=== PATIENT | female | born 1935 | race Caucasian/White ===

== ENCOUNTER 2016-11-25 14:31 | Emergency (ER) | payer MEDICARE, OTHER ==
[~2016-11-25] VITALS: Ht 152.4 cm; Wt 73.0 kg
[~2016-11-25 14:31] MED LIST: ASPI-482 PO; ATOR20TA58 PO; ENAL5TAB PO; ERGO500027 PO; FLUO40CA2 PO; FLUT16SP NS; FLUT1DIS3 IH; GABA800T2 PO; GLIM1TAB2 PO; Hydrocodone/Acetaminophen PO; METF-620 PO; METO25TA4 PO; MONT10TA9 PO; MULT1TAB52 PO; Methocarbamol PO; OXYB5TAB7 PO; PROM118S2 PO; VENTOLIN HFA18 GM IH; calcium PO
[2016-11-25] MEDS ORDERED: LIDOCAINE/EPI/TETRACAINE TOPICAL GEL 3 ML. TP ONE (15:00)
--- NOTE | 2016-11-25 15:46 | RAD ---
CT head without contrast: Reason for examination: Patient fell with laceration to posterior head. Axial images were obtained to the brain. No contrast was administered. Ventricular systems are prominent but symmetric consistent with patient's advanced age with symmetric cerebral atrophy. No midline shift is seen. There is no evidence of intracranial hemorrhage, infarct, mass or contusion. No abnormalities are seen at the orbits. No acute skull abnormality is seen. IMPRESSION: No acute intracranial abnormality evident that there is some cerebral atrophy. CT cervical spine without contrast: Helical images were obtained through the cervical spine with no contrast administered. Reconstruction was performed in sagittal and coronal planes. The C1 ring appears to be intact. The odontoid process appears to be intact and normally centered between the lateral masses of C1. The cervical vertebral bodies are normally aligned anteriorly and posteriorly. No acute fracture or subluxation is evident. Posterior elements appear to be intact. There are degenerative changes throughout the cervical spine with hypertrophic spurring off the endplates. The intervertebral disc spaces however are fairly well-maintained. Prevertebral soft tissues are normal. IMPRESSION: Severe degenerative spondylosis. No acute abnormality evident in the cervical spine. Exposure: One or more of the following individualized dose reduction techniques were utilized for this examination: 1. Automated exposure control 2. Adjustment of the mA and/or kV according to patient size 3. Use of iterative reconstruction technique. Electronically signed by: Rossy Sepulveda MD (11/25/2016 3:42 PM)
[2016-11-25 16:15] VITALS: BP 128/57
--- NOTE | 2016-11-25 16:51 | PHYS DOC ---
Past Medical History Past Medical History: Asthma, Depression, Diabetes-Type II, Hypertension Past Surgical History: Angioplasty, Cholecystectomy, Hip Replacement, Tubal ligation Additional Past Surgical Histo: with stent placement Alcohol Use: None Drug Use: None Adult General Chief Complaint Chief Complaint: MECHANICAL FALL HPI HPI Patient is a 81 year old female who presents with head injury & scalp laceration. She states 1 hour prior to arrival she tried to sit down in a chair which slid away & she fell backwards. She hit her head on the floor but denies loss of consciousness. She complains of headache & left hip pain although hip pain has been ongoing for several weeks & not worsened by the fall. She denies other injuries. She has a walker that she uses infrequently & says she has frequent falls. Denies syncope or lightheadedness as contributing factors in any of these falls. Last tetanus < [address] Cheung. Review of Systems Review of Systems Constitutional: Denies fever or chills Eyes: Denies change in visual acuity HENT: Denies nasal congestion or sore throat Respiratory: Denies cough or shortness of breath Cardiovascular: Denies chest pain GI: Denies abdominal pain, nausea, vomiting Musculoskeletal: REports hip pain Integument: Reports laceration. Neurologic: Reports headache, denies focal weakness or sensory changes Current Medications Current Medications Current Medications Medications (Trade) Dose Ordered Sig/Rachana Start Time Stop Time Status Last Admin Dose Admin Lidocaine/ Epinephrine (Let Topical) 3 ml 1X ONCE 11/25/16 15:00 11/25/16 15:01 DC 11/25/16 15:52 3 ML Allergies Allergies Allergies Coded Allergies Type Severity Reaction Last Updated Verified Sulfa (Sulfonamide Antibiotics) Allergy Intermediate anxiety, nausea 03/21/14 Yes Physical Exam Physical Exam Constitutional: Well developed, well nourished, no acute distress, non-toxic appearance. HENT: Normocephalic, 4 cm right occipital scalp laceration, bilateral external ears normal, oropharynx moist, nose normal. Eyes: PERRLA, EOMI, conjunctiva normal, no discharge. Neck: supple, no stridor. no midline c-spine tenderness Cardiovascular: RRR, no murmurs, no edema. Lungs & Thorax: LCTAB, no wheezing, no respiratory distress. Abdomen: soft, nontender, nondistended. Skin: scalp laceration as above Back: No spinal tenderness. Extremities: left hip no swelling or deformity, no focal bony tenderness, no knee or ankle tenderness, able to flex/extend, dp/pt 2+, sensation intact to foot. Neurologic: Alert and oriented X 3, CN2-12 grossly intact, symmetric strength/ sensation to UE & LE, no focal deficits noted. Psychologic: Affect normal, judgement normal, mood normal. Current Patient Data Vital Signs Vital Signs Date Time Temp Pulse Resp B/P (MAP) Pulse Ox O2 Delivery O2 Flow Rate FiO2 11/25/16 16:15 73 19 128/57 (80) 94 Room Air 11/25/16 14:50 98.8 98.8 EKG EKG [] Radiology/Procedures Radiology/Procedures PROCEDURE: CT HEAD AND CERVICAL SPINE WO CT head without contrast: Reason for examination: Patient fell with laceration to posterior head. Axial images were obtained to the brain. No contrast was administered. Ventricular systems are prominent but symmetric consistent with patient's advanced age with symmetric cerebral atrophy. No midline shift is seen. There is no evidence of intracranial hemorrhage, infarct, mass or contusion. No abnormalities are seen at the orbits. No acute skull abnormality is seen. IMPRESSION: No acute intracranial abnormality evident that there is some cerebral atrophy. CT cervical spine without contrast: Helical images were obtained through the cervical spine with no contrast administered. Reconstruction was performed in sagittal and coronal planes. The C1 ring appears to be intact. The odontoid process appears to be intact and normally centered between the lateral masses of C1. The cervical vertebral bodies are normally aligned anteriorly and posteriorly. No acute fracture or subluxation is evident. Posterior elements appear to be intact. There are degenerative changes throughout the cervical spine with hypertrophic spurring off the endplates. The intervertebral disc spaces however are fairly well-maintained. Prevertebral soft tissues are normal. IMPRESSION: Severe degenerative spondylosis. No acute abnormality evident in the cervical spine. Exposure: One or more of the following individualized dose reduction techniques were utilized for this examination: 1. Automated exposure control 2. Adjustment of the mA and/or kV according to patient size 3. Use of iterative reconstruction technique. Electronically signed by: Rossy Hart MD (11/25/2016 3:42 PM) DICTATED and SIGNED BY: ROSSY HART MD DATE: 11/25/16 1537 XR L hip & pelvis: interpreted by me: bilateral hip prostheses with chronic degenerative changes & old fracture, no new fracture or dislocation.[] Course & Med Decision Making Course & Med Decision Making Pertinent Labs and Imaging studies reviewed. (See chart for details) The patient presents with scalp laceration after mechanical fall. Neurologically intact, tetanus up to date. Wound irrigated by RN & LET applied. CT results as above not showing acute injury, & XR of hip shows chronic abnormalities without acute injury. Staple repair by me. Recommend wound care, fall precautions, follow up here or with PCP in 5 days for staple removal, & follow up with PCP regardless in about a week regarding frequent falls. Come back for altered mental status, focal neuro deficit, syncope, any otherwise worsening condition. Discharged home in stable & improved condition. [] Dragon Disclaimer Dragon Disclaimer This electronic medical record was generated, in whole or in part, using a voice recognition dictation system. Laceration Repair Lac Repair Indication: scalp laceration Procedure: The patient was placed in the appropriate position and anesthesia around the wound was achieved by topical application of LET. The area was then irrigated with a copious amount of NS, by the RN. The laceration was repaired using 6 skin richar. Total repaired wound length: 4 cm. The patient tolerated the procedure well. Complications: none. Departure Departure Impression: Primary Impression: Scalp laceration Additional Impression: Head injury Disposition: 01 HOME, SELF-CARE Condition: STABLE Referrals: LADONNA CHEUNG MD (PCP) AGUS SMYTH MD Patient Instructions: Fall Prevention and Home Safety, [id number], Head Injury, Adult, [id number], Staple Wound Closure, [id number] Additional Instructions: You were seen in the emergency department today for fall and head injury. Your scalp was repaired with richar. Okay to wash gently in the shower, don't immerse in the bathtub or go swimming. Use walker to prevent falls. Follow up with primary care physician regarding frequent falls. If desired, follow-up with Dr. Smyth in the orthopedic clinic regarding hip pain. Come back for confusion, difficulty walking or talking, numbness or weakness in arms or legs, uncontrolled vomiting, any otherwise worsening condition. Problem Qualifiers CARLOS NORMAN MD Nov 25, 2016 16:51
--- NOTE | 2016-11-26 09:04 | RAD ---
HIP LEFT 2V WITH PELVIS Clinical Indication: fall pain Comparison: Left hip, 2 views, 08/05/2008. Right hip, 2 views 12/16/2014. Findings: There is left hip arthroplasty. Alignment is anatomic. No acute fracture. No radiographic evidence of loosening. Bone fragments or heterotopic ossification superior to the acetabular component and the greater trochanter are stable. There is also right hip arthroplasty. No acute displaced pelvic fracture. There is lucency superior to the right acetabular component but unchanged. IMPRESSION: No acute fracture.
== END 2016-11-25 17:00 | disposition home or self-care (01) ==
LOC: ER 14:31
DX: S01.01XA Laceration without foreign body of scalp, initial encounter (principal); M25.552 Pain in left hip; J45.909 Unspecified asthma, uncomplicated; I10 Essential (primary) hypertension; E11.9 Type 2 diabetes mellitus without complications; F32.9 Major depressive disorder, single episode, unspecified; Z98.61 Coronary angioplasty status; Z96.643 Presence of artificial hip joint, bilateral; Z88.2 Allergy status to sulfonamides; W07.XXXA Fall from chair, initial encounter; Y93.89 Activity, other specified; Y99.8 Other external cause status; Y92.89 Other specified places as the place of occurrence of the external cause
CPT/HCPCS: 12002; 70450; 72125; 73502; 99284-25